=== PATIENT | male | born 1960 | race Hispanic/Latino ===

== ENCOUNTER 2016-12-03 23:54 | Emergency (ER) | payer MEDICAID ==
[2016-12-04] VITALS: RESP 16; TEMP 98.1; O2SAT 100
--- NOTE | 2016-12-04 00:32 | ED PDOC ---
HPI: General Adult Time Seen by Provider: 12/03/16 23:59 Chief Complaint (Nursing): Medical Clearance Chief Complaint (Provider): Medical clearance and anxiety History Per: Patient History/Exam Limitations: no limitations Onset/Duration Of Symptoms: Hrs (Prior to arrival) Additional Complaint(s): Paolo Campbell is a 56 year old male, with a past medical history of anxiety and pneumonia, who was brought to the emergency department under arrest and via EMS due to anxiety associated with shortness of breath at the police station prior to arrival. Patient reports he usually runs out of breath when panicked. He admits to cocaine abuse today and alcohol consumption. Patient denies any fever, chills, and chest pain. No further medical complaints PMD: None provided. Past Medical History Reviewed: Historical Data, Nursing Documentation, Vital Signs Vital Signs: Last Vital Signs Temp 98.1 F 12/03/16 23:58 Pulse 75 12/04/16 00:37 Resp 16 12/03/16 23:58 BP 142/96 H 12/03/16 23:58 Pulse Ox 100 12/04/16 00:37 - Medical History PMH: Anxiety, Bipolar Disorder, Bronchitis, Depression, Pneumonia, Schizophrenia Denies: Diabetes, Hepatitis, HIV, HTN, Chronic Kidney Disease, Seizures, Sexually Transmitted Disease - Surgical History Surgical History: Appendectomy (1999) - Family History Family History: States: Unknown Family Hx - Social History Current smoker - smoking cessation education provided: No Alcohol: Occasional Drugs: Cocaine - Immunization History Hx Tetanus Toxoid Vaccination: No Hx Influenza Vaccination: No Hx Pneumococcal Vaccination: No - Home Medications Home Medications: Ambulatory Orders Medication Instructions Recorded Aspirin [Ecotrin] 81 mg PO DAILY 08/01/16 Clopidogrel [Plavix] 75 mg PO DAILY 08/01/16 ARIPiprazole [Abilify] 20 mg PO HS #30 tab 08/08/16 Aspirin [Aspirin Chewable] 81 mg PO DAILY #30 08/08/16 Clopidogrel [Plavix] 75 mg PO DAILY #30 tab 08/08/16 Escitalopram [Lexapro] 20 mg PO DAILY #30 tab 08/08/16 Gabapentin [Neurontin] 300 mg PO TID #90 cap 08/08/16 - Allergies Allergies/Adverse Reactions: Allergies Allergy/AdvReac Type Severity Reaction Status Date / Time No Known Allergies Allergy Verified 09/08/17 23:58 Review of Systems ROS Statement: Except As Marked, All Systems Reviewed And Found Negative Constitutional: Negative for: Fever, Chills Cardiovascular: Negative for: Chest Pain Respiratory: Positive for: Shortness of Breath (out of breath when panicked) Psych: Positive for: Anxiety Physical Exam - Reviewed Nursing Documentation Reviewed: Yes Vital Signs Reviewed: Yes - Physical Exam Appears: Positive for: Well, Non-toxic, No Acute Distress Head Exam: Positive for: ATRAUMATIC, NORMAL INSPECTION, NORMOCEPHALIC Skin: Positive for: Normal Color, Warm, Dry Eye Exam: Positive for: EOMI, Normal appearance, PERRL ENT: Positive for: Normal ENT Inspection Neck: Positive for: Normal, Painless ROM, Supple Cardiovascular/Chest: Positive for: Regular Rate, Rhythm. Negative for: Murmur Respiratory: Positive for: Normal Breath Sounds. Negative for: Respiratory Distress Gastrointestinal/Abdominal: Positive for: Normal Exam, Bowel Sounds, Soft. Negative for: Tenderness Back: Positive for: Normal Inspection. Negative for: L CVA Tenderness, R CVA Tenderness Extremity: Positive for: Normal ROM. Negative for: Tenderness, Pedal Edema, Deformity Neurologic/Psych: Positive for: Alert, Oriented. Negative for: Motor/Sensory Deficits - ECG ECG Rhythm: Positive for: Normal QRS, Normal ST Segment, Sinus Rhythm (normal) Rate: 75 O2 Sat by Pulse Oximetry: 100 (RA) Pulse Ox Interpretation: Normal Medical Decision Making Medical Decision Making: Initial Impression: anxiety during incarceration Initial Plan: --EKG --Crisis evaluation --Xanax 1 mg PO --reevaluation 1am: Pt. cleared by crisis w dx of adjustment. Pt. stable and medically discharged as well. Scribe Attestation: Documented by Suraj Crespo, acting as a scribe for Matheus Peña MD. Provider Scribe Attestation: All medical record entries made by the Scribe were at my direction and personally dictated by me. I have reviewed the chart and agree that the record accurately reflects my personal performance of the history, physical exam, medical decision making, and the department course for this patient. I have also personally directed, reviewed, and agree with the discharge instructions and disposition. Disposition - Clinical Impression Clinical Impression: Adjustment disorder - Disposition Disposition: Routine/Home (To [facility]) Disposition Time: 01:04 Condition: STABLE Additional Instructions: Medically and psychiatrically cleared for incarceration. Forms: [employer] ([place])
[2016-12-04 01:12] VITALS: BP 135/80; PULSE 78
--- NOTE | 2016-12-06 11:24 | CARD ---
APPROVED REPORT EKG Measurement Heart [id number] <Conclusion> Normal sinus rhythm Early repolarization Normal ECG
== END 2016-12-04 01:11 | disposition home or self-care (01) ==
LOC: H.ER 23:54
DX: F43.20 Adjustment disorder, unspecified (principal)

== ENCOUNTER 2017-01-15 14:53 | Emergency (ER) | payer MEDICAID, OTHER ==
[2017-01-15 15:04] VITALS: BP 119/81; PULSE 73; RESP 16; TEMP 98; O2SAT 99
--- NOTE | 2017-01-15 15:23 | ED PDOC ---
HPI: Psych/Substance Abuse Time Seen by Provider: 01/15/17 15:06 Chief Complaint (Nursing): Anxiety Chief Complaint (Provider): Anxitey History Per: Patient History/Exam Limitations: no limitations Current Symptoms Are (Timing): Still Present Additional Complaint(s): Paolo Campbell is a non-domiciled 56 year old male with a history of anxiety, depression, and drug abuse that presents to the ED with a chief complaint of panic attacks and depression. Patient reports that he used to take Abilify and Paxil but has been off of these meds for several months. He admits to using cocaine last night, and states that he typically uses it "as often as I can." He additionally admits to drinking 1 beer last night but denies current intoxication. Patient was discharged 2 days ago from [facility] [place] inpatient psychiatric unit. PMD: none Past Medical History Reviewed: Historical Data, Nursing Documentation, Vital Signs Vital Signs: Last Vital Signs Temp 98.0 F 01/15/17 15:01 Pulse 73 01/15/17 15:01 Resp 16 01/15/17 15:01 BP 119/81 01/15/17 15:01 Pulse Ox 99 01/15/17 15:01 - Medical History PMH: Anxiety, Bipolar Disorder, Bronchitis, Depression, Schizophrenia, Seizures (ETOH related) - Surgical History Surgical History: Appendectomy (1999) - Family History Family History: States: No Known Family Hx - Living Arrangements Living Arrangements: Other (non-domiciled) - Social History Current smoker - smoking cessation education provided: No Alcohol: > 2 Drinks/Day Drugs: Cocaine (2-3x a week) - Immunization History Hx Tetanus Toxoid Vaccination: No Hx Influenza Vaccination: No Hx Pneumococcal Vaccination: No - Home Medications Home Medications: Ambulatory Orders Medication Instructions Recorded Aspirin [Ecotrin] 81 mg PO DAILY 08/01/16 ARIPiprazole [Abilify] 20 mg PO HS #30 tab 08/08/16 Aspirin [Aspirin Chewable] 81 mg PO DAILY #30 08/08/16 Clopidogrel [Plavix] 75 mg PO DAILY #30 tab 01/14/17 Escitalopram [Lexapro] 20 mg PO DAILY #30 tab 01/14/17 Gabapentin [Neurontin] 300 mg PO BID #60 cap 01/14/17 traZODone [Desyrel] 100 mg PO HS PRN #60 tab 01/14/17 - Allergies Allergies/Adverse Reactions: Allergies Allergy/AdvReac Type Severity Reaction Status Date / Time No Known Allergies Allergy Verified 01/15/17 15:01 Review of Systems ROS Statement: Except As Marked, All Systems Reviewed And Found Negative Psych: Positive for: Anxiety (Panic attacks), Depression, Other (cocaine use) Physical Exam - Reviewed Nursing Documentation Reviewed: Yes Vital Signs Reviewed: Yes - Physical Exam Appears: Positive for: Well, Non-toxic, No Acute Distress Head Exam: Positive for: ATRAUMATIC, NORMOCEPHALIC Skin: Positive for: Normal Color Eye Exam: Positive for: Normal appearance Cardiovascular/Chest: Positive for: Regular Rate, Rhythm. Negative for: Murmur Respiratory: Positive for: Normal Breath Sounds. Negative for: Wheezing Neurologic/Psych: Positive for: Alert, Oriented, Mood/Affect (flat). Negative for: Motor/Sensory Deficits - Laboratory Results Result Diagrams: 01/15/17 15:33 01/15/17 15:33 - ECG O2 Sat by Pulse Oximetry: 99 (RA) Pulse Ox Interpretation: Normal Medical Decision Making Medical Decision Making: Impression: 56 year old male with anxiety and depression Plan: * CMP * CBC * Urine Drug Screen * Urinalysis * Alcohol * Crisis Evaluation As per crisis counselor and psychiatrist production line manager, Dr. Mondragon, patient does not meet criteria for admission and is stable for discharge. Patient was referred for outpatient follow up. Scribe Attestation: Documented by Karol Aly, acting as a scribe for Luna Dietrich PA-C. Provider Scribe Attestation: All medical record entries made by the Scribe were at my direction and personally dictated by me. I have reviewed the chart and agree that the record accurately reflects my personal performance of the history, physical exam, medical decision making, and the department course for this patient. I have also personally directed, reviewed, and agree with the discharge instructions and disposition. Disposition - Clinical Impression Clinical Impression: Anxiety disorder - Patient ED Disposition Is Patient to be Admitted: No Counseled Patient/Family Regarding: Diagnosis, Need For Followup - Disposition Referrals: [facility] [Outside] Disposition: Routine/Home Disposition Time: 16:30 Condition: STABLE Additional Instructions: Follow up as directed. Instructions: Anxiety (ED) Forms: [employer] ([place]ian) Results - Lab Results Lab Results: 01/15/17 01/15/17 15:33 15:33 WBC 7.3 RBC 4.35 L Hgb 14.0 Hct 41.0 MCV 94.3 H MCH 32.3 H MCHC 34.3 RDW 13.2 Plt Count 239 MPV 8.4 Neut % (Auto) 61.5 Lymph % (Auto) 24.1 Taylor % (Auto) 10.4 H Eos % (Auto) 2.9 Baso % (Auto) 1.1 Neut # 4.5 Lymph # 1.7 Taylor # 0.8 Eos # 0.2 Baso # 0.1 Sodium 142 Potassium 4.3 Chloride 105 Carbon Dioxide 27 Anion Gap 14 BUN 21 H Creatinine 1.0 Est GFR ( Amer) > 60 Est GFR (Non-Af Amer) > 60 Random Glucose 89 Calcium 9.4 Total Bilirubin 0.6 AST 48 ALT 72 Alkaline Phosphatase 52 Total Protein 7.4 Albumin 4.4 Globulin 2.9 Albumin/Globulin Ratio 1.5 Alcohol, Quantitative < 10
[2017-01-15 15:36] LABS: BASO # 0.1 K/uL (0.0-0.2); BASO % 1.1 % (0.0-2.0); EOS # 0.2 K/uL (0.0-0.7); EOS % 2.9 % (0.0-4.0); LYMPH # 1.7 K/uL (1.0-4.3); LYMPH % 24.1 % (20.0-40.0); MEAN CELL VOLUME 94.3 fl (80.0-94.0); MEAN CORPUSCULAR HEMOGLOBIN 32.3 pg (27.0-31.0); MEAN CORPUSCULAR HGB CONC 34.3 g/dL (33.0-37.0); MEAN PLATELET VOLUME 8.4 fl (7.2-11.7); MONO # 0.8 K/uL (0.0-0.8); MONO % 10.4 % (0.0-10.0); NEUT # 4.5 K/uL (1.8-7.0); NEUT % 61.5 % (50.0-75.0); NRBC % 0.1 % (0.0-0.0); RED CELL DISTRIBUTION WIDTH 13.2 % (11.5-14.5); WHITE BLOOD COUNT 7.3 K/uL (4.8-10.8)
[2017-01-15 15:48] LABS: ALB/GLOB RATIO 1.5 (1.0-2.1); ALCOHOL SERUM < 10 mg/dl (0-10); ALKALINE PHOSPHATASE 52 U/L (38-126); ALT/SGPT 72 U/L (21-72); AST/SGOT 48 U/L (17-59); BILIRUBIN,TOTAL 0.6 mg/dl (0.2-1.3); BLOOD UREA NITROGEN 21 mg/dl (9-20); CALCIUM 9.4 mg/dL (8.4-10.2); CARBON DIOXIDE 27 mmol/L (22-30); CHLORIDE 105 mmol/L (98-107); GFR AFRICAN-AMERICAN > 60; GLUCOSE,RANDOM 89 mg/dL (75-110); POTASSIUM 4.3 MMOL/L (3.6-5.0); SODIUM 142 mmol/l (132-148); TOTAL PROTEIN 7.4 G/DL (6.3-8.2)
[2017-01-15 15:49] LABS: RBC URINE 2 /hpf (0-3); URINE BILIRUBIN NEGATIVE (NEGATIVE); URINE BLOOD NEGATIVE (NEGATIVE); URINE COLOR YELLOW (YELLOW); URINE GLUCOSE (UA) NEG (Normal); URINE KETONE NEGATIVE (NEGATIVE); URINE LEUKOCYTE ESTERASE NEG Leu/uL (Negative); URINE PROTEIN NEGATIVE (NEGATIVE); URINE UROBILINOGEN 0.2-1.0 mg/dL (0.2-1.0); WBC URINE 1 /hpf (0-5)
== END 2017-01-15 17:05 | disposition home or self-care (01) ==
LOC: H.ER 14:53
DX: F41.9 Anxiety disorder, unspecified (principal)